=== PATIENT | female | born 1985 | race Caucasian/White ===

== ENCOUNTER → 2017-02-05 | Outpatient (CLI) | payer BC | END | disposition home or self-care (01) | LOC: C.PAPS 17:44 | PROVIDERS: ATTEND Obstetrics & Gynecology | DX: Z01.419 Encounter for gynecological examination (general) (routine) without abnormal findings (principal) ==

== ENCOUNTER → 2018-01-30 | Outpatient (CLI) | payer BC, OTHER | END | disposition home or self-care (01) | LOC: C.RDSM 12:18 | PROVIDERS: ATTEND Physical Medicine & Rehabilitation Sports Medicine | DX: M47.816 Spondylosis without myelopathy or radiculopathy, lumbar region (principal) ==